=== PATIENT | male | born 1995 | race Caucasian/White ===

== ENCOUNTER 2018-08-19 13:49 | Emergency (ER) | payer OTHER ==
[~2018-08-19] VITALS: Ht 170.2 cm; Wt 91.2 kg
[2018-08-19] MEDS ORDERED: ALBUTEROL/IPRATROPIUM 2.5MG/0.5MG, 3 ML NPPB SCH (14:00)
--- NOTE | 2018-08-19 14:13 | NUR ---
3D TECHNOLOGIST: PT TO ROOM FROM [facility]
--- NOTE | 2018-08-19 14:26 | NUR ---
PT WITH C/O SOB AND PRODUCTIVE COUCH X9 DAYS. PT STATES " ITS JUST BEEN GETTING WORSE LATELY" PT DENIES ANY FEVER, PAIN, N/V. PT PLACED ON CONT PULSE OX, NIBP.
[2018-08-19] MEDS ORDERED: ALBUTEROL/IPRATROPIUM 2.5MG/0.5MG, 3 ML ONE (14:27)
[2018-08-19] MEDS ORDERED: CEFTRIAXONE PMX 1GM/50ML 50 ML IVPB ONE (14:30)
[2018-08-19] MEDS ORDERED: SODIUM CHLORIDE FLUSH 10ML SYR IVF ONE (14:30)
[2018-08-19] MEDS ORDERED: AZITHROMYCIN 500 MG in SODIUM CHLORIDE 0.9% 250 ML IVPB ONE (14:30)
[2018-08-19] MEDS ORDERED: FLUT1DIS3 INH (14:46)
[2018-08-19 14:54] LABS: MEAN CORPUSCULAR HEMOGLOBIN 30.1 pg (27.5-34.5); MEAN CORPUSCULAR HGB CONC 33.9 g/dL (33.2-36.2); MEAN PLATELET VOLUME 7.1 fL (7.4-10.4); PLATELET COUNT 638 x10^3/uL (130-400); RED BLOOD COUNT 4.81 x10^6/uL (4.38-5.82); RED CELL DISTRIBUTION WIDTH 13.4 % (9.4-14.8)
[2018-08-19] MEDS ORDERED: PLEASE ENTER ALLERGIES MC SCH (15:00)
[2018-08-19 15:06] LABS: ALBUMIN 3.6 g/dL (3.4-5.0); ANION GAP 12 mmol/L (5-15); CALCIUM 9.1 mg/dL (8.5-10.1); CHLORIDE 99 mmol/L (98-107); CREATININE 1.07 mg/dL (0.7-1.3)
[2018-08-19] MEDS ORDERED: CEFTRIAXONE PMX 1GM/50ML 50 ML ONE (15:16)
--- NOTE | 2018-08-19 15:19 | NUR ---
PT STATES "I TOOK SOME PREDNISONE AT THE CAMPUS CLINIC." NO ACUTE DISTRESS NOTED. NO NEEDS REQUESTED AT THIS TIME.
[2018-08-19 15:20] LABS: MD YES
[2018-08-19 15:23] LABS: <PLATELET ESTIMATE> INCREASED; <PLT MORPHOLOGY> NORMAL PLT MORPH; <RBC MORPHOLOGY> NORMAL; BANDS%(MANUAL) 5 % (0-7); EOS#(MANUAL) 0.64 x10^3/uL (0.0-0.4); EOS% (MANUAL) 4 % (1-7); LYMPH#(MANUAL) 1.11 x10^3/uL (1-3.4); LYMPHS% (MANUAL) 7 % (22-44); MONOS#(MANUAL) 0.64 x10^3/uL (0.3-2.7); MONOS% (MANUAL) 4 % (2-9); SEG#(MANUAL) 12.72 x10^3/uL (1.8-6.8); SEGS% (MANUAL) 80 % (42-75)
--- NOTE | 2018-08-19 16:02 | NUR ---
PT AMBULATORY WITH STEADY GAIT TO BATHROOM. PT OXYGEN SATURATION 88-90%. PT PLACED BACK ON 2LPM. NO ACUTE DISTRESS NTED. NO NEEDS REQUESTED AT THIS TIME.
[2018-08-19 16:03] VITALS: BP 120/72
--- NOTE | 2018-08-19 16:26 | NUR ---
BEDSIDE REPORT TO GEORGINA STRAUSS.
--- NOTE | 2018-08-19 16:30 | NUR ---
RECEIVED REPORT FROM ANANDA ERICKSON
--- NOTE | 2018-08-19 17:37 | NUR ---
AWAITING FOR ANTIBIOTICS TO INFUSE.
--- NOTE | 2018-08-19 18:00 | NUR ---
pt discharged with discharge instructions and follow up instructions. pt up ambulatory and stable on feet.
== END 2018-08-19 18:02 | disposition home or self-care (01) ==
LOC: ED 17:39
DX: J15.9 Unspecified bacterial pneumonia (principal); R09.02 Hypoxemia; J45.909 Unspecified asthma, uncomplicated
CPT/HCPCS: 36415; 71046; 80048; 82040; 83605; 85025; 87040; 96365; 96367; 99284; J0456; J0696; J7050